=== PATIENT | female | born 1955 | race African-American/Black ===

== ENCOUNTER 2024-02-14 15:52 | Emergency (ER) | payer OTHER, BC ==
[2024-02-14] MEDS ORDERED: ALBUTEROL SO4 0.083% IH SOL 2.5 MG/3 ML VIAL.NEB. NEB ONE (16:06)
[2024-02-14] MEDS ORDERED: methylPREDNISolone NA SUCC 125 MG/2 ML VIAL ONE (16:06)
[2024-02-14] MEDS: methylPREDNISolone NA SUCC 125 MG/2 ML VIAL IVPUSH ONE (16:10)
[2024-02-14] MEDS ORDERED: FAMOTIDINE 20 MG/50 ML IVPB 20 MG/50 ML MG IVPB ONE (16:17)
[2024-02-14] MEDS: ALBUTEROL SO4 0.083% IH SOL 2.5 MG/3 ML VIAL.NEB. NEB ONE (16:25)
[2024-02-14] MEDS: FAMOTIDINE 20 MG/50 ML IVPB 20 MG/50 ML MG IVPB ONE (16:30)
[2024-02-14 16:32] VITALS: RESP 18; TEMP 98.1; BMI 23.3
[2024-02-14] MEDS: FAMOTIDINE 20 MG TABLET PO ONE (16:35)
[2024-02-14] MEDS: predniSONE 20 MG TABLET (UD) PO ONE (16:35)
[2024-02-14] MEDS: diphenhydrAMINE HCL 25 MG CAPSULE (FP) PO ONE (16:35)
[2024-02-14 17:22] VITALS: BP 108/72; PULSE 78
== END 2024-02-14 18:20 | disposition home or self-care (01) ==
LOC: FER 15:52
PROC: 3E033GC Introduction of Other Therapeutic Substance into Peripheral Vein, Percutaneous Approach (ICD-10-PCS; principal; 2024-02-14)
PROC: 3E033GC Introduction of Other Therapeutic Substance into Peripheral Vein, Percutaneous Approach (ICD-10-PCS; 2024-02-14)
PROC: 3E033GC Introduction of Other Therapeutic Substance into Peripheral Vein, Percutaneous Approach (ICD-10-PCS; 2024-02-14)
PROC: 3E0F7GC Introduction of Other Therapeutic Substance into Respiratory Tract, Via Natural or Artificial Opening (ICD-10-PCS; 2024-02-14)
DX: R21 Rash and other nonspecific skin eruption (principal); R07.0 Pain in throat; R22.0 Localized swelling, mass and lump, head; R05.9 Cough, unspecified; R09.82 Postnasal drip; T78.40XA Allergy, unspecified, initial encounter
CPT/HCPCS: 99284-25